=== PATIENT | female | born 1950 | race Caucasian/White ===

== ENCOUNTER → 2017-08-20 | Outpatient (CLI) | payer MEDICARE, OTHER ==
[~2017-08-20] MED LIST: ASPIRIN81 M1 PO; AVIDOXY100 MG PO; BENZONATATE100 MG PO; CEFDINIR300 MG PO; CHILDREN'S CHEW81 MG PO; DIFLUCAN150 MG PO; EFFIENT10 MG PO; FLOMAX0.4 MG PO; FLONASE 0.05% 121 EA NAS; HYDROCODONE BIT1 T11 PO; IMDUR30 MG PO; MEDROL DOSEPAK4 MG PO; NEXIUM40 MG PO; NITROSTAT0.4 MG SL; SIMVASTATIN80 MG PO; TESSALON PERLE200 MG PO; ZOCOR5 MG PO
[2017-08-20 09:08] LABS: ALBUMIN 4.2 gm/dl (3.1-4.5); ALKALINE PHOSPHATASE 113 U/L (45-117); BUN 14 mg/dl (7-24); CHLORIDE 106 mmol/L (98-107); CHOLESTEROL 122 mg/dL (<200); CREATININE 0.77 mg/dL (0.55-1.02); HDL CHOLESTEROL 61 mg/dl (40-60); LDL CHOLESTEROL 47 mg/dL (9-159); POTASSIUM 4.6 mmol/L (3.5-5.1); SGOT/AST 19 IU/L (3-35); SGPT/ALT 29 U/L (12-78); SODIUM 139 mmol/L (136-145); TOTAL PROTEIN 7.9 gm/dL (6.4-8.2); TRIGLYCERIDES 71 mg/dl (<150); VLDL CHOLESTEROL 14 mg/dL (6-40)
== END | disposition home or self-care (01) ==
LOC: LAB 08:14
PROVIDERS: Internal Medicine Cardiovascular Disease
DX: I25.10 Atherosclerotic heart disease of native coronary artery without angina pectoris (principal); E78.5 Hyperlipidemia, unspecified

== ENCOUNTER → 2017-11-14 | Outpatient (CLI) | payer MEDICARE, OTHER | END | disposition home or self-care (01) | LOC: US 00:25 | DX: R10.32 Left lower quadrant pain (principal) ==

== ENCOUNTER → 2020-05-09 | Outpatient (CLI) | payer MEDICARE, OTHER ==
[2020-05-09 08:41] LABS: CHOLESTEROL 131 mg/dL (<200); HDL CHOLESTEROL 65 mg/dl (40-60); LDL CHOLESTEROL 47 mg/dL (9-159); TRIGLYCERIDES 93 mg/dl (<150); VLDL CHOLESTEROL 19 mg/dL (6-40)
== END | disposition home or self-care (01) ==
LOC: LAB 05-08 00:11
PROVIDERS: ATTEND Nurse Practitioner Family
DX: I25.10 Atherosclerotic heart disease of native coronary artery without angina pectoris (principal); R06.09 Other forms of dyspnea; E78.5 Hyperlipidemia, unspecified; Z72.0 Tobacco use; R73.03 Prediabetes

== ENCOUNTER → 2022-06-08 | Outpatient (CLI) | payer MEDICARE, OTHER ==
[2022-06-08 08:12] LABS: CHOLESTEROL 117 mg/dL (<200); GAMMA GLUTAMYL TRANSPEPTIDASE 36 U/L (0-73); LDL CHOLESTEROL 48 mg/dL (9-159); TRIGLYCERIDES 94 mg/dl (<150)
== END | disposition home or self-care (01) ==
LOC: LAB 07:08
PROVIDERS: ATTEND Dermatology
DX: L70.0 Acne vulgaris (principal); Z79.899 Other long term (current) drug therapy

== ENCOUNTER → 2022-10-09 | Outpatient (CLI) | payer MEDICARE, OTHER ==
[2022-10-09 07:24] LABS: BASO # 0.1 10*3/uL (0.0-0.1); BASO % 0.9 % (0.0-1.0); EOS # 0.1 10*3/uL (0.0-0.4); LYMPH # 2.6 10*3/uL (1.3-4.4); LYMPH % 26.5 % (27.0-41.0); MEAN CELL VOLUME 92.7 fl (81.0-99.0); MEAN CORPUSCULAR HGB 30.4 pg (27.0-31.0); MEAN CORPUSCULAR HGB CONC 32.7 g/dl (33.0-37.0); MONO # 0.6 10*3/uL (0.1-1.0); MONO % 5.8 % (3.0-9.0); NEUT # 6.5 10*3/uL (2.3-7.9); NEUT % 65.7 % (47.0-73.0); PLATELET COUNT AUTOMATED 313 10*3/uL (130-400); RED BLOOD COUNT 5.93 10*6/uL (4.10-5.10); RED CELL DISTRI WIDTH 14.8 % (0-14.5); WHITE BLOOD COUNT 9.9 10*3/uL (4.8-10.8)
[2022-10-09 07:51] LABS: ALKALINE PHOSPHATASE 121 U/L (46-116); BUN 15 mg/dl (9-23); CHLORIDE 104 mmol/L (98-107); CHOLESTEROL 132 mg/dL (<200); LDL CHOLESTEROL 56 mg/dL (9-159); POTASSIUM 4.6 mmol/L (3.4-5.1); SGPT/ALT 33 U/L (10-49); THYROID STIM HORMONE (HS) 1.668 uIU/ml (0.550-4.780); TOTAL PROTEIN 7.7 gm/dL (6.0-8.0); TRIGLYCERIDES 128 mg/dl (<150)
== END | disposition home or self-care (01) ==
LOC: LAB 07:03
PROVIDERS: ATTEND Family Medicine
DX: I25.10 Atherosclerotic heart disease of native coronary artery without angina pectoris (principal); J44.9 Chronic obstructive pulmonary disease, unspecified; E78.5 Hyperlipidemia, unspecified; E55.9 Vitamin D deficiency, unspecified

== ENCOUNTER → 2023-07-27 | Outpatient (CLI) | payer MEDICARE, OTHER | END | disposition home or self-care (01) | LOC: LAB 14:06 | PROVIDERS: ATTEND Family Medicine | DX: J98.8 Other specified respiratory disorders (principal); R05.9 Cough, unspecified ==